=== PATIENT | male | born 1975 | race Hispanic/Latino ===

== ENCOUNTER 2022-03-18 04:23 | Emergency (ER) | payer BC, OTHER ==
[~2022-03-18] VITALS: Ht 167.6 cm; Wt 93.0 kg
[~2022-03-18 04:23] MED LIST: CEFU500T67 PO; METR500T PO
[2022-03-18] MEDS ORDERED: IBUPROFEN 600 MG TABLET PO ONE (04:30)
[2022-03-18] MEDS ORDERED: IBUPROFEN 600 MG TABLET ONE (04:32)
[2022-03-18 06:17] LABS: INFLUENZA TYPE A NEGATIVE FOR TYPE A (NEG); INFLUENZA TYPE B NEGATIVE FOR TYPE B (NEG)
[2022-03-18] MEDS ORDERED: OSEL75 PO (06:27)
[2022-03-18 06:33] VITALS: BP 106/58
== END 2022-03-18 06:35 | disposition home or self-care (01) ==
LOC: EDH 04:23
DX: J11.1 Influenza due to unidentified influenza virus with other respiratory manifestations (principal); Z20.822 Contact with and (suspected) exposure to COVID-19; Z79.1 Long term (current) use of non-steroidal anti-inflammatories (NSAID)
CPT/HCPCS: 99283; 87635; 87804 ×2; C9803

== ENCOUNTER 2022-11-23 20:06 | Emergency (ER) | payer OTHER ==
[~2022-11-23] VITALS: Ht 172.7 cm; Wt 92.5 kg
[~2022-11-23 20:06] MED LIST changes: +OSEL75 PO
[2022-11-23 23:26] LABS: APPEARANCE,URINE CLEAR (CLEAR); BILIRUBIN,URINE NEGATIVE (NEGATIVE); COLOR,URINE LIGHT-YELLOW (YELLOW); GLUCOSE, URINE (UA) NEGATIVE (NEGATIVE); KETONES,URINE NEGATIVE (NEGATIVE); LEUKOCYTE ESTERASE ,URINE 25 Leu/uL (NEGATIVE); NITRATE,URINE NEGATIVE (NEGATIVE); OCCULT BLOOD,URINE MODERATE (NEGATIVE); PROTEIN,URINE 10 mg/dL (NEGATIVE)
[2022-11-23 23:39] LABS: BASOPHILS % (AUTO) 0.4 % (0.0-5.0); EOSINOPHILS % (AUTO) 0.5 % (0.0-8.0); HEMATOCRIT 42.9 % (42-54); LYMPHOCYTES % (AUTO) 11.5 % (21.0-51.0); MEAN CORPUSCULAR HEMOGLOBIN 27.8 pg (27.0-33.0); MEAN CORPUSCULAR HGB CONC 32.2 g/dL (32.0-36.0); MEAN CORPUSCULAR VOLUME 86.3 fL (79-99); MONOCYTES % (AUTO) 10.9 % (3.0-13.0); NEUTROPHILS % (AUTO) 76.4 % (40.0-77.0); PLATELET COUNT (AUTO) 367 K/uL (130-400); RED BLOOD CELL COUNT(AUTO) 4.97 MIL/uL (4.50-6.20); RED CELL DISTRIBUTION WIDTH 15.2 % (11.0-15.5); WHITE BLOOD COUNT (AUTO) 9.7 K/uL (4.8-10.8)
[2022-11-23 23:41] LABS: BACTERIA,URINE RARE /HPF (None Seen); MUCUS,URINE RARE LPF (None Seen); RBC,URINE 51-100 /HPF (0-1)
[2022-11-23 23:47] LABS: CREATININE 0.9 mg/dL (0.5-1.5); POTASSIUM 4.1 mmol/L (3.5-5.1)
[2022-11-23 23:52] LABS: ALBUMIN 3.8 g/dL (3.5-5.0); TOTAL PROTEIN, SERUM 8.7 g/dL (6.0-8.3)
[2022-11-24] MEDS ORDERED: CEFTRIAXONE 1G VIAL IVPB ONE
[2022-11-24] MEDS ORDERED: CIPR-278 PO (01:16)
[2022-11-24 01:31] VITALS: BP 132/78
== END 2022-11-24 01:33 | disposition home or self-care (01) ==
LOC: EDH 20:06
DX: N30.91 Cystitis, unspecified with hematuria (principal)
CPT/HCPCS: 99284; 80053; 85025; 87077; 87088; 87186; 87797; 87486; 81001; 36415; 96365; J0696

== ENCOUNTER 2022-12-23 09:21 | Emergency (ER) | payer OTHER ==
[~2022-12-23] VITALS: Ht 170.2 cm; Wt 89.8 kg
[~2022-12-23 09:21] MED LIST changes: +CIPR-278 PO
[2022-12-23] MEDS ORDERED: DiphenhydrAMINE HCL 50 MG/ML VIAL IM ONE (10:00)
[2022-12-23] MEDS ORDERED: SOLU-MEDROL 125MG VIAL IVP ONE (10:00)
[2022-12-23 11:50] LABS: APPEARANCE,URINE CLEAR (CLEAR); BILIRUBIN,URINE NEGATIVE (NEGATIVE); COLOR,URINE YELLOW (YELLOW); GLUCOSE, URINE (UA) NEGATIVE (NEGATIVE); KETONES,URINE 10 mg/dL (NEGATIVE); LEUKOCYTE ESTERASE ,URINE 250 Leu/uL (NEGATIVE); NITRATE,URINE NEGATIVE (NEGATIVE); OCCULT BLOOD,URINE SMALL (NEGATIVE); PROTEIN,URINE 70 mg/dL (NEGATIVE)
[2022-12-23 11:57] LABS: BACTERIA,URINE FEW /HPF (None Seen); MUCUS,URINE MOD LPF (None Seen); RBC,URINE 51-100 /HPF (0-1); WBC,URINE 26-50 /HPF (0-1)
[2022-12-23] MEDS ORDERED: PRED20TA3 PO (13:04)
[2022-12-23 13:55] VITALS: BP 133/71
== END 2022-12-23 13:16 | disposition home or self-care (01) ==
LOC: EDH 09:21
DX: L50.0 Allergic urticaria (principal); N39.0 Urinary tract infection, site not specified; Z79.52 Long term (current) use of systemic steroids
CPT/HCPCS: 99284; 96374; 87088; 81001; 96372; J1200; J2930

== ENCOUNTER 2023-04-25 10:12 | Day surgery (SDC) | payer OTHER ==
[2023-04-23 13:58] LABS: RED BLOOD CELL COUNT(AUTO) 5.35 MIL/uL (4.50-6.20); WHITE BLOOD COUNT (AUTO) 9.8 K/uL (4.8-10.8)
[2023-04-23 13:59] LABS: BASOPHILS # (AUTO) 0.02 K/uL (0.00-0.20); BASOPHILS % (AUTO) 0.2 % (0.0-5.0); EOSINOPHILS # (AUTO) 0.19 K/uL (0.00-0.70); EOSINOPHILS % (AUTO) 1.9 % (0.0-8.0); HEMATOCRIT 46.6 % (42-54); MEAN CORPUSCULAR HEMOGLOBIN 27.9 pg (27.0-33.0); MEAN CORPUSCULAR VOLUME 87.1 fL (79-99); MONOCYTES # (AUTO) 0.6 K/uL (0.1-1.0); MONOCYTES % (AUTO) 5.7 % (3.0-13.0); NEUTROPHILS # (AUTO) 7.1 K/uL (1.8-7.7); NEUTROPHILS % (AUTO) 71.9 % (40.0-77.0); PLATELET COUNT (AUTO) 409 K/uL (130-400); RED CELL DISTRIBUTION WIDTH 14.9 % (11.0-15.5)
[2023-04-23 14:00] LABS: POTASSIUM 3.8 mmol/L (3.5-5.1)
[2023-04-23 14:01] LABS: CREATININE 0.8 mg/dL (0.5-1.5)
[2023-04-23 14:42] VITALS: BP 139/87; PULSE 77; RESP 18
[~2023-04-25] VITALS: Ht 167.6 cm; Wt 89.8 kg
[2023-04-25] VITALS (9 sets, daily range): BP systolic 133–142; BP diastolic 84–93; PULSE 80–89; RESP 16–22
[~2023-04-25 10:12] MED LIST changes: -CEFU500T67 PO; -CIPR-278 PO; -METR500T PO; +NITR100C PO; -OSEL75 PO
[2023-04-25] MEDS ORDERED: LIDOCAINE PF 100MG/5ML (2%) SYRINGE 5ML ONE (13:27)
[2023-04-25] MEDS ORDERED: PROPOFOL 10 MG/ML 20ML VIAL IV ONE ×2 (13:27→13:55)
[2023-04-25] MEDS ORDERED: FENTANYL CITRATE PF 50 MCG/1 ML 2ML VIAL ONE (14:03)
[2023-04-25] MEDS ORDERED: MIDAZOLAM HCL 1 MG/ML 2ML VIAL ONE (14:03)
== END 2023-04-25 15:05 | disposition home or self-care (01) ==
LOC: ENDO 10:12 → DAH 10:12 → ENDO 15:05
PROVIDERS: ATTEND Student in an Organized Health Care Education/Training Program
DX: K57.92 Diverticulitis of intestine, part unspecified, without perforation or abscess without bleeding (principal); D12.4 Benign neoplasm of descending colon; K63.89 Other specified diseases of intestine; K63.2 Fistula of intestine; Z88.6 Allergy status to analgesic agent; Z88.8 Allergy status to other drugs, medicaments and biological substances; Z80.51 Family history of malignant neoplasm of kidney; Z82.49 Family history of ischemic heart disease and other diseases of the circulatory system; Z87.891 Personal history of nicotine dependence
CPT/HCPCS: 80048; 85025; 36415; 88305 ×2; 45381; 45380; 45385; J3010; J2001; J2250; J2704 ×2; A4620; A4215 ×2; A4223; A7002; A4222; A4221; A4663; A4216; J7030; A4606; J3490

== ENCOUNTER → 2023-09-24 | Outpatient (CLI) | payer OTHER | END | disposition home or self-care (01) | LOC: RAH 09:51 | PROVIDERS: ATTEND Student in an Organized Health Care Education/Training Program | DX: K57.30 Diverticulosis of large intestine without perforation or abscess without bleeding (principal); K38.2 Diverticulum of appendix; K63.2 Fistula of intestine; Z93.2 Ileostomy status | CPT/HCPCS: 74270 ==

== ENCOUNTER → 2023-12-11 | Outpatient (CLI) | payer OTHER | END | disposition home or self-care (01) | LOC: RAH 09:17 | PROVIDERS: ATTEND Urology | DX: K63.2 Fistula of intestine (principal); M47.815 Spondylosis without myelopathy or radiculopathy, thoracolumbar region; Z90.49 Acquired absence of other specified parts of digestive tract | CPT/HCPCS: 74018 ==